=== PATIENT | male | born 1950 | race Caucasian/White ===

== ENCOUNTER 2019-07-25 20:30 | Outpatient (CLI) | payer MEDICARE, OTHER | END 2019-07-25 20:31 | disposition home or self-care (01) | LOC: SLEEPLAB 20:30 | PROVIDERS: ATTEND Internal Medicine | DX: G47.33 Obstructive sleep apnea (adult) (pediatric) (principal); I10 Essential (primary) hypertension; R09.89 Other specified symptoms and signs involving the circulatory and respiratory systems; R53.83 Other fatigue; R06.83 Snoring; G47.00 Insomnia, unspecified; G47.10 Hypersomnia, unspecified | CPT/HCPCS: 95810 ==

== ENCOUNTER 2019-09-07 19:30 | Outpatient (CLI) | payer MEDICARE, OTHER | END 2019-09-07 19:31 | disposition home or self-care (01) | LOC: SLEEPLAB 19:30 | PROVIDERS: ATTEND Internal Medicine | DX: G47.33 Obstructive sleep apnea (adult) (pediatric) (principal); R53.83 Other fatigue; R06.83 Snoring; I10 Essential (primary) hypertension | CPT/HCPCS: 95811 ==

== ENCOUNTER 2019-11-21 12:10 | Emergency (ER) | payer MEDICARE, OTHER ==
--- NOTE | 2019-11-21 12:29 | CT ---
EXAM: CT brain without contrast HISTORY: Right sided facial and arm numbness/tingling COMPARISON: None TECHNIQUE: Multiple contiguous axial images were obtained and a CT of the brain without contrast. FINDINGS: The brain is normal in morphology and attenuation without focal lesions or confluent areas of infarction. There is no evidence of hydrocephalus, intracranial hemorrhage, or extra-axial fluid collection. The calvarium and overlying soft tissues are unremarkable. The visualized paranasal sinuses and masto id air cells are well aerated. IMPRESSION: No evidence of acute intracranial abnormality Dr. Saab notified of findings at 12:26 PM on 11/21/2019
[2019-11-21 12:41] LABS: #Basophils 0.1 thou/uL (0.0-0.2); #Eosinphils 0.3 thou/uL (0.0-0.7); #Lymphocytes 2.8 thou/uL (1.20-3.40); #Neutrophils 7.4 thou/uL (1.40-6.50); %Basophils 0.8 % (0.0-1.0); %Eosinophils 2.2 % (0.0-10.0); %Lymphocytes 24.5 % (21.0-51.0); %Monocytes 8.3 % (0.0-10.0); %Neutrophils 64.2 % (42.0-75.0); Hemoglobin 11.7 g/dL (14.0-18.0); Mean Corpuscular HGB CONC 33.5 g/dL (32.0-36.0); Mean Corpuscular Hemoglobin 31.7 pg (27.0-31.0); Mean Corpuscular Volume 94.8 fL (78.0-98.0); Mean Platelet Volume 5.8 fL (7.4-10.4); Platelet Count 666 thou/uL (130-400); Red Blood Cell (RBC) Count 3.68 mill/uL (4.70-6.10); White Blood Cell (WBC) Count 11.6 thou/uL (4.8-10.8)
[2019-11-21 12:52] LABS: INR-International Normal Ratio 1.3; PTT 35.2 SEC (22.9-36.1); Prothrombin Time 16.3 SEC (12.0-14.7)
[2019-11-21 13:06] LABS: ALT (SGPT) 11 U/L (8-55); AST (SGOT) 13 U/L (5-34); Albumin 3.8 g/dL (3.4-4.8); Alkaline Phosphatase 64 U/L (40-110); Anion Gap 11 mmol/L (10-20); BUN (Urea Nitrogen) 23 mg/dL (8.4-25.7); Bilirubin, Total 0.7 mg/dL (0.2-1.2); Calc. Creatinine Clearance 0 mL/min (70-130); Carbon Dioxide 25 mmol/L (23-31); Chloride 107 mmol/L (98-107); Estimated GFR-MDRD 55; Glucose 108 mg/dL (80-115); Potassium 4.4 mmol/L (3.5-5.1); Protein, Total 6.8 g/dL (5.8-8.1); Sodium 139 mmol/L (136-145)
[2019-11-21] MEDS ORDERED: Iopamidol-370 76% 500 ML 1 ML ONE (13:34)
--- NOTE | 2019-11-21 14:06 | CT ---
CT of theneck with IV contrast: 11/21/2019 COMPARISON:None available HISTORY:Right arm paresthesias, numbness and tingling of the right hand and right neck TECHNIQUE: Serial axial CT imaging at2.5 mm collimation from theskull base through lung apices with I V contrast. Coronal and sagittal reformatted imaging obtained. Findings:Imaged lung apices unremarkable. Imaged paranasal sinuses and mastoid air cells well-aerated. The retroantral fat and parapharyngeal f at appears clear bilaterally. The parotid and submandibular glands appear grossly unremarkable bilaterally. Thyroid gland, cricoid cartilage, thyroid cartilage, level of the glottis, palantine tonsils, epiglot tis, and preepiglottic fat appears grossly unremarkable. No discrete lymphadenopathy is appreciated within the neck. Partially imaged chest wall demonstrates significant right-sided edematous change within the axilla, the subcutaneous fat, and the right pectoralis musculature. There is also extension of fluid and stranding of the fat along the course of the posterior lateral right-sided paraspinal musculature wit h stranding of the fat and ill-defined fluid density within the fat of the posterior triangle on the right. No circumscribed drainable fluid collection. There is associated small volume fluid in the carotid space on the right adjacent to the right internal jugular vein, and right common carotid artery, particularly distally. Review of the osseous structures demonstrates multilevel cervical spine degenerative change with disc space narrowing, degenerative endplate change, as well as multilevel bilateral facet and uncovertebral osteophyte formation. No osseous erosive changes are noted within the cervical spine. Impression:Nonspecific diffuse abnormal inflammatory fat stranding with associated intermixed fluid d ensity involving the imaged upper right chest wall, the right pectoralis musculature, the right axillary region, the right carotid space, the right posterior triangle, and the posterolateral right- sided paraspinal musculature. Findings suggest nonspecific edematous/inflammatory process. No subcutaneous gas. Edema associated with recent trauma and/or possibly venous clot is a possibility. C linical correlation is essential. Short-term follow-up imaging following treatment advised to document resolution.
--- NOTE | 2019-11-21 15:27 | ULT ---
RIGHT UPPER EXTREMITY VENOUS ULTRASOUND WITH DOPPLER: HISTORY: Right upper extremity swelling. COMPARISON: None CORRELATION: Soft tissue neck CT 11/21/2019 TECHNIQUE: Grayscale, color flow, Doppler imaging and spectral wave analysis performed the right uppe r extremity venous system FINDINGS: There is compressibility and flow in the internal jugular vein. Distal subclavian vein. This compress ibility and flow in the axillary vein, brachial vein, radial vein, ulnar vein, cephalic vein and basilic vein. IMPRESSION: No evidence of thrombus in the right upper [place] venous system. Transcribed Date/Time: 11/21/2019 3:41 PM
== END 2019-11-21 17:00 | disposition home or self-care (01) ==
LOC: ERS 12:10
DX: M25.462 Effusion, left knee (principal); R20.2 Paresthesia of skin; F17.290 Nicotine dependence, other tobacco product, uncomplicated; Z79.899 Other long term (current) drug therapy; Z86.718 Personal history of other venous thrombosis and embolism
CPT/HCPCS: 36416; 70450; 70491; 80053; 84484; 85025; 85610; 85730; 93005; Q9967

== ENCOUNTER 2021-03-02 10:18 | Outpatient (CLI) | payer MEDICARE, OTHER | END 2021-03-02 10:19 | disposition home or self-care (01) | LOC: NM 10:18 | PROVIDERS: ATTEND Specialist | DX: T84.84XA Pain due to internal orthopedic prosthetic devices, implants and grafts, initial encounter (principal) | CPT/HCPCS: 78315; A9503 ==

== ENCOUNTER 2022-10-22 13:12 | Outpatient (CLI) | payer MEDICARE ==
[2022-10-22] MEDS ORDERED: Magnevist 469MG/ML 20 ML VIAL ONE (13:27)
== END 2022-10-22 13:13 | disposition home or self-care (01) ==
LOC: TBSIIMAG 13:12
PROVIDERS: ATTEND Anesthesiology Pain Medicine
DX: M47.27 Other spondylosis with radiculopathy, lumbosacral region (principal); M71.38 Other bursal cyst, other site; M47.26 Other spondylosis with radiculopathy, lumbar region; M51.16 Intervertebral disc disorders with radiculopathy, lumbar region; M43.16 Spondylolisthesis, lumbar region; M51.15 Intervertebral disc disorders with radiculopathy, thoracolumbar region; M48.05 Spinal stenosis, thoracolumbar region; M47.25 Other spondylosis with radiculopathy, thoracolumbar region; M48.061 Spinal stenosis, lumbar region without neurogenic claudication; Z98.890 Other specified postprocedural states
CPT/HCPCS: 72158; A9579